=== PATIENT | female | born 1945 | race Caucasian/White ===

== ENCOUNTER → 2016-07-27 | Outpatient (CLI) | payer OTHER ==
[~2016-07-27] MED LIST: ASPIR 8181 MG PO; ASPIRIN EC81 M1 PO; ATORVASTATIN CA40 MG PO; CARAFATE 1 GM TA1 G1 PO; CIPRO500 MG PO; CLONIDINE0.1 PO; FLORANEX TABLE1 EACH PO; GLIPIZIDE ER2.5 MG PO; LISINOPRIL-HCT1 EAC1 PO; LISINOPRIL20 MG PO; MOBIC15 MG PO; PRILOSEC 20 MG20 MG PO; PROTONIX40 M1 PO; SINGULAIR 10 MG10 M1 PO; TOPROL XL50 MG PO; TRAMADOL 50 MG50 MG PO; TYLENOL325 MG PO; ULTRAM 50MG TAB50 MG PO; ZOCOR40 MG PO
== END ==
LOC: RAD 10:43
DX: J45.909 Unspecified asthma, uncomplicated (principal); R05 Cough